=== PATIENT | male | born 1955 | race Caucasian/White ===

== ENCOUNTER 2022-12-22 09:00 | Outpatient (NON) | payer MEDICARE, SELFPAY | END 2022-12-22 09:01 | disposition home or self-care (01) | PROVIDERS: PCP Nurse Practitioner Family; Visit Provider Internal Medicine Gastroenterology | DX: D12.3 Benign neoplasm of transverse colon (principal) | CPT/HCPCS: 88305 ==

== ENCOUNTER 2022-12-22 11:35 | Day surgery (SDC) | payer MEDICARE, SELFPAY ==
[2022-12-08 13:21] VITALS: BMI 35.1
[2022-12-22 11:55] VITALS: BP 132/83; PULSE 102; RESP 20; TEMP 36.8; O2SAT 98
[2022-12-22 12:12] LABS: Glucose Point of Care 118 mg/dl (65-105)
[2022-12-22] MEDS: LACTATED RINGERS 1,000 ML 150 ML IV CONT (12:23)
--- NOTE | 2022-12-22 12:58 | PM.HPGS ---
History of Present Illness History of Present Illness Consent: Risks, benefits, and alternatives have been discussed and questions answered. Patient agrees to proceed with procedure. Chief complaint: Neoplasm Screening Narrative: Johnny Calvo is a 67 year old male Presents for screening colonoscopy. Patient's current weight appetite and bowel movements are normal. Patient denies abdominal pain. He has had no bleeding. Family history noncontributory. Patient has had previous colonoscopies in [place]. Is uncertain but he may have had colon polyps. Review of records reveal history of hyperplastic, benign colon polyp in the past. Review of Systems Review of Systems: Review of systems is noncontributory. [facility] Social History Social History (System 05/28/21 @ 15:20 by Mireille Lindsay) Smoking packs per day: 1 Smoking cigarettes per day: 20.0 Years smoked: 5 Smoking pack-years: 5.00 Smoking status: Former smoker Tobacco type: cigarettes Smoking end date: 10/09/78 Alcohol intake: former Alcohol use details: STOPPED DRINKING ETOH 9 YEARS AGO Substance use: current Substance use type: marijuana Other substance usage details: 1-2X/WEEK Living arrangements: alone Spiritual care concerns: No Meds Home Medications and Allergies Home Medications Medication Instructions Recorded Confirmed Type sodium,potassium,mag sulfates 17.5 See Rx Instructions PO .COMPLEX 11/21/22 Rx gram-3.13 gram-1.6 gram oral soln #354 mL (Suprep Bowel Prep Kit) candesartan 32 mg tablet 32 mg PO DAILY 12/08/22 12/08/22 History cetirizine 10 mg tablet 10 mg PO HS 12/08/22 12/08/22 History clonazepam 1 mg tablet 1 mg PO HS RESTLESS LEG 12/08/22 12/08/22 History duloxetine 30 mg capsule,delayed 30 mg PO HS 12/08/22 12/08/22 History release duloxetine 60 mg capsule,delayed 60 mg PO HS 12/08/22 12/08/22 History release ezetimibe 10 mg tablet 10 mg PO HS 12/08/22 12/08/22 History gabapentin 300 mg tablet 300 mg PO TID 12/08/22 12/08/22 History hydrocodone 5 mg-acetaminophen 325 5 - 325 tablet PO Q10-12H PAIN 12/08/22 12/08/22 History mg tablet lactobacillus combination no.8 3 1 cell PO DAILY 12/08/22 12/08/22 History billion cell capsule metformin 1,000 mg tablet 1,000 mg PO BID 12/08/22 12/08/22 History rosuvastatin 20 mg tablet 20 mg PO HS 12/08/22 12/08/22 History solifenacin 10 mg tablet 10 mg PO DAILY 12/08/22 12/08/22 History syringe with needle 3 mL 22 gauge 12/08/22 12/08/22 History x 1 (BD Luer-Teddy Syringe) tamsulosin 0.4 mg capsule 0.4 mg PO HS 12/08/22 12/08/22 History testosterone cypionate 200 mg/mL 200 mg IM [id number] 12/08/22 12/08/22 History intramuscular oil wheat dextrin-calcium 1 ea PO DAILY 12/08/22 12/08/22 History gluc,lact-aspartam 3 gram-200mg/6 gram oral powd Allergies Allergy/AdvReac Type Severity Reaction Status Date / Time Calcium Channel Blocking Allergy Severe Rash Verified 12/22/22 12:19 Agent Dilt Vital Signs Vital Signs - 24 hr 12/22/22 11:55 Temperature 98.3 F Pulse Rate 102 H Respiratory Rate 20 Blood Pressure 132/83 Pulse Oximetry 98 Oxygen Delivery Room Air Exam Narrative: This exam reveals patient to be alert. Vital signs stable. HEENT exam is unremarkable. Patient is anicteric. Lungs are clear to auscultation and percussion. Heart is without murmur or extra sounds. Abdomen bowel sounds are present soft nontender with no organomegaly. Digital external rectal exam is normal. Assessment and Plan Assessment and plan (1) Encounter for screening colonoscopy: Code(s): Z12.11 - Encounter for screening for malignant neoplasm of colon Status: Acute Assessment and Plan: Patient presents today for screening colonoscopy. Further recommendations may be given after endoscopy.
--- NOTE | 2022-12-22 13:22 | WPDANESEPPF ---
Anes - Initial Pre Proc Eval Procedure: Operation Date: 12/22/22 13:30 Proposed Procedures p Screening Colonoscopy - Diego Chris MD Date/Time: 12/22/22 13:22 Surgeon: Diego Chris MD Pre Op Diagnosis: Neoplasm Screening Patient Data Age: 67 Gender: M Height: 1.78 m Weight: 112.9 kg Last Vital Signs Temp 36.8 C 12/22/22 11:55 Pulse 102 H 12/22/22 11:55 Resp 20 12/22/22 11:55 BP 132/83 12/22/22 11:55 Pulse Ox 98 12/22/22 11:55 O2 Del Method Room Air 12/22/22 11:55 Allergies Allergy/AdvReac Type Severity Reaction Status Date / Time Calcium Channel Blocking Allergy Severe Rash Verified 12/22/22 12:19 Agent Dilt Home Medications Medication Instructions Recorded Confirmed Type sodium,potassium,mag sulfates 17.5 See Rx Instructions PO .COMPLEX 11/21/22 Rx gram-3.13 gram-1.6 gram oral soln #354 mL (Suprep Bowel Prep Kit) candesartan 32 mg tablet 32 mg PO DAILY 12/08/22 12/08/22 History cetirizine 10 mg tablet 10 mg PO HS 12/08/22 12/08/22 History clonazepam 1 mg tablet 1 mg PO HS RESTLESS LEG 12/08/22 12/08/22 History duloxetine 30 mg capsule,delayed 30 mg PO HS 12/08/22 12/08/22 History release duloxetine 60 mg capsule,delayed 60 mg PO HS 12/08/22 12/08/22 History release ezetimibe 10 mg tablet 10 mg PO HS 12/08/22 12/08/22 History gabapentin 300 mg tablet 300 mg PO TID 12/08/22 12/08/22 History hydrocodone 5 mg-acetaminophen 325 5 - 325 tablet PO Q10-12H PAIN 12/08/22 12/08/22 History mg tablet lactobacillus combination no.8 3 1 cell PO DAILY 12/08/22 12/08/22 History billion cell capsule metformin 1,000 mg tablet 1,000 mg PO BID 12/08/22 12/08/22 History rosuvastatin 20 mg tablet 20 mg PO HS 12/08/22 12/08/22 History solifenacin 10 mg tablet 10 mg PO DAILY 12/08/22 12/08/22 History syringe with needle 3 mL 22 gauge 12/08/22 12/08/22 History x 1 (BD Luer-Teddy Syringe) tamsulosin 0.4 mg capsule 0.4 mg PO HS 12/08/22 12/08/22 History testosterone cypionate 200 mg/mL 200 mg IM [id number] 12/08/22 12/08/22 History intramuscular oil wheat dextrin-calcium 1 ea PO DAILY 12/08/22 12/08/22 History gluc,lact-aspartam 3 gram-200mg/6 gram oral powd Laboratory Tests 12/22/22 12:08 POC Capillary Glucose 118 mg/dl H mg/dl (65-105) Patient hx anesthesia problems: none Family hx anesthesia problems: none Results Review: All pre-operative results and documents have been reviewed as part of the pre-operative evaluation. [facility] Past Medical History Medical History (Updated 12/22/22 @ 13:23 by Jeison Lackey MD) Diabetes HTN (hypertension) Obesity Surgical History Surgical History (Updated 12/22/22 @ 13:23 by Jeison Lackey MD) H/O colonoscopy Social History Social History Smoking packs per day: 1 Smoking cigarettes per day: 20.0 Years smoked: 5 Smoking pack-years: 5.00 Smoking status: Former smoker Tobacco type: cigarettes Smoking end date: 10/09/78 Alcohol intake: former Alcohol use details: STOPPED DRINKING ETOH 9 YEARS AGO Substance use: current Substance use type: marijuana Other substance usage details: 1-2X/WEEK Living arrangements: alone Spiritual care concerns: No Anes - Eval Final PreProcedure Day of Procedure 12/22/22 13:22 Patient weight: obese Heart: regular rate and rhythm Lungs: clear to auscultation Airway: Mallampati scale class II Neurological: alert and oriented Last oral intake: >/= 8 hours ASA classification: III Emergent: no Anesthetic plan: proceed Anesthesia type and monitoring: general GIVS and standard monitoring Results Review: All pre-operative results and documents have been reviewed as part of the pre-operative evaluation. Informed Consent: The patient's anesthetic plan and its attendant risks and benefits were discussed with the patient/family/POA. Questions were solicited and answers pro
[2022-12-22 14:17] VITALS: BP 88/43; PULSE 72; RESP 14; O2SAT 93
[2022-12-22 14:27] VITALS: BP 100/65; PULSE 82; RESP 18; O2SAT 96
--- NOTE | 2022-12-22 14:36 | SUR.PHASEII ---
1417; UPON ARRIVAL TO [facility] FROM [facility], PT BP 88/43. TAKEN TWICE. TAYLOR CLAIMS CORRESPONDENCE CLERK AT BEDSIDE. PT DROWSY, RESP EVEN UNLABORED.
[2022-12-22 14:37] VITALS: BP 100/74; PULSE 76; RESP 18; O2SAT 96
--- NOTE | 2022-12-22 14:43 | WPDANESPN ---
Anes - Prog Note Post-Op Date/Time: 12/22/22 14:43 Cardiovascular status: normal Respiratory status: normal Airway patency: baseline Mental status: baseline Post-Op hydration status: normal Vital Signs: Last Vital Signs Temp 36.8 C 12/22/22 11:55 Pulse 82 12/22/22 14:27 Resp 18 12/22/22 14:27 BP 100/65 12/22/22 14:27 Pulse Ox 96 12/22/22 14:27 O2 Del Method Room Air 12/22/22 14:27 Pain Score (VAS): 0/10 I/O: Intake & Output 12/21/22 12/22/22 12/22/22 23:59 07:59 15:59 Intake Total 0 Balance 0 12/22/22 12:08 POC Capillary Glucose 118 H Patient Feedback: Patient satisfied with anesthetic care.
[2022-12-22 14:47] VITALS: BP 123/67; PULSE 72; RESP 18; O2SAT 96
--- NOTE | 2022-12-22 14:47 | SUR.PHASEII ---
PT AWAKE AND ALERT. DENIES PAIN. BP 100/74. DR SOLARES NOTIFIED. GIVING PT IVF PER DR SOLARES INSTRUCTION. PT ASKING WHEN HE CAN GO HOME. DRINKING JUICE.
--- NOTE | 2022-12-22 15:04 | SUR.PHASEII ---
1450; NOTIFIED DR SOLARES OF BP 123/67
== END 2022-12-22 15:12 | disposition home or self-care (01) ==
PROVIDERS: PCP Nurse Practitioner Family; Visit Provider Internal Medicine Gastroenterology
PROC: 0DJD8ZZ Inspection of Lower Intestinal Tract, Via Natural or Artificial Opening Endoscopic (ICD-10-PCS; CPT 45378; principal; 2022-12-22 13:30)
DX: Z12.11 Encounter for screening for malignant neoplasm of colon (principal)
CPT/HCPCS: 45385